=== PATIENT | male | born 1945 | race Caucasian/White ===

== ENCOUNTER 2023-04-05 18:19 | Observation (INO) ==
[2023-04-05] MEDS ORDERED: Fluorescein Sodium TOPICAL TEST STRIP OPHTHALMIC ONE (20:26)
[2023-04-05 20:40] LABS: ABS Eosinophils 0.1 10^3/uL (0.0-0.5); ABS Lymphocytes 0.4 10^3/uL (1.0-4.8); ABS Monocytes 0.3 10^3/uL (0.0-1.1); ABS Neutrophils 2.1 10^3/uL (1.5-7.6); ABS Nucleated RBC 0.01 10^3/ul; Eosinophil % 4.3 %; Hematocrit 28.8 % (38-53); Hemoglobin 9.8 g/dL (13.2-16.3); Lymphocyte % 12.5 %; Mean Corpuscular Hemoglobin 27.9 pg (27-33); Mean Corpuscular Volume 81.9 fL (80-97); Mean Platelet Volume 5.8 fL (7.5-11.2); Nucleated Red Blood Cells % 0.2 /100 WBC (0.0-0.4); Platelet Count 219 10^3/uL (150-450); Red Blood Count 3.52 10^6/uL (4.06-5.63); Red Cell Distribution Width 16.4 % (12-17)
[2023-04-05 20:55] LABS: Albumin 3.5 g/dL (3.2-5.2); Albumin/Globulin Ratio 1.2 (1-3); CRP High Sensitivity 8.07 mg/L (<2.00); Calcium 8.3 mg/dL (8.6-10.3); Creatinine, Serum 1.15 mg/dL (0.67-1.17); Potassium 4.3 mmol/L (3.5-5.0); Total Bilirubin 0.3 mg/dL (0.2-1.0); Total Protein 6.5 g/dL (6.4-8.9); eGFR CKD-EPI 65.1 (>60)
[2023-04-05] MEDS ORDERED: Acyclovir IV 570 MG in NS 0.9% 100 ml BAG 100 ML IVPB ONE (21:09)
[2023-04-05] MEDS: Erythromycin OPTH OINT APPLIC OINT RIGHT EYE SCH (21:45)
[2023-04-06] MEDS ORDERED: Senna TAB 8.6 mg TAB PO PRN (00:02)
[2023-04-06] MEDS ORDERED: Enoxaparin 40 MG/0.4 ML SYR SUBCUT SCH (01:00)
[2023-04-06 07:08] LABS: ABS Eosinophils 0.1 10^3/uL (0.0-0.5); ABS Lymphocytes 0.3 10^3/uL (1.0-4.8); ABS Monocytes 0.3 10^3/uL (0.0-1.1); ABS Neutrophils 2.1 10^3/uL (1.5-7.6); ABS Nucleated RBC 0.01 10^3/ul; Eosinophil % 3.6 %; Hematocrit 29.4 % (38-53); Hemoglobin 10.1 g/dL (13.2-16.3); Lymphocyte % 11.7 %; Mean Corpuscular Hgb Conc 34.3 g/dL (31-36); Mean Corpuscular Volume 81.7 fL (80-97); Mean Platelet Volume 5.9 fL (7.5-11.2); Nucleated Red Blood Cells % 0.2 /100 WBC (0.0-0.4); Platelet Count 212 10^3/uL (150-450); Red Cell Distribution Width 16.1 % (12-17); White Blood Count 2.9 10^3/uL (3.6-10.2)
[2023-04-06 07:19] LABS: Creatinine, Serum 1.1 mg/dL (0.67-1.17); Potassium 4.3 mmol/L (3.5-5.0); eGFR CKD-EPI 68.7 (>60)
[2023-04-06] MEDS: Erythromycin OPTH OINT APPLIC OINT RIGHT EYE SCH ×2 (08:30→16:12)
[2023-04-06 17:24] VITALS: BP 129/71
== END 2023-04-06 16:00 | disposition home or self-care (01) ==
LOC: ED 18:19 → EDHOLD 18:19 → SUATTDRO 21:55 → SSU 04-06 08:35
PROVIDERS: ADMIT Internal Medicine; ATTEND Hospitalist